=== PATIENT | male | born 1945 | race Caucasian/White ===

== ENCOUNTER 2017-12-14 18:00 | Day surgery (SDC) | payer MEDICARE ==
[~2017-12-14] VITALS: Ht 190.5 cm; Wt 180.5 kg
[~2017-12-14 18:00] MED LIST: ASPI-586 PO; ATEN100T PO; CALC500T3 PO; FUROSEMIDE; GLIP10TA13 PO; HYDR25TA4 PO; IBUP-1779 PO; METF-399 PO; PRAV20TA3 PO
--- OUTSIDE RECORDS SUMMARY | 2017-12-14 18:08 | XMS REPORT | Continuity of Care Document ---
Author Author [facility] Organization [facility] Address Unknown Phone Unavailable Allergies Active Description Code Type Severity Reaction Onset Reported/Identified Relationship to Patient Clinical Status Yes lisinopril [id number] Drug Allergy Mild N/A 02/06/2015 Medications There is no data. Problems Date Dx Coded Attending Type Code Diagnosis Diagnosed By 02/06/2015 SUSANNE SCOTT MD Ot E11.9 TYPE 2 DIABETES MELLITUS WITHOUT COMPLIC 02/06/2015 SUSANNE SCOTT MD Ot I10 ESSENTIAL (PRIMARY) HYPERTENSION 02/06/2015 SUSANNE SCOTT MD Ot I48.91 UNSPECIFIED ATRIAL FIBRILLATION 02/06/2015 SUSANNE SCOTT MD Ot Z79.82 LEARNING COORDINATOR (CURRENT) USE OF ASPIRIN 02/06/2015 SUSANNE SCOTT MD Ot Z79.899 OTHER SENIOR LIVING (CURRENT) DRUG THERAPY 05/19/2015 CHUN TINSLEY CARBONATION EQUIPMENT TENDER Ot G47.30 05/19/2015 CHUN TINSLEY CARBONATION EQUIPMENT TENDER Ot I25.10 05/19/2015 CHUN TINSLEY CARBONATION EQUIPMENT TENDER Ot I48.2 12/20/2015 CHUN TINSLEY CARBONATION EQUIPMENT TENDER Ot G47.30 SLEEP APNEA, UNSPECIFIED 12/20/2015 CHUN TINSLEY CARBONATION EQUIPMENT TENDER Ot I25.10 ATHSCL HEART DISEASE OF [place] CORONARY 12/20/2015 CHUN TINSLEY CARBONATION EQUIPMENT TENDER Ot I48.2 CHRONIC ATRIAL FIBRILLATION Procedures There is no data. Results Test Result Range Sed Rate - 12/13/17 19:23 Sed Rate 34 mm/hr 0-9 Creatine Kinase - 12/13/17 19:35 CK 34 U/L 26-174 Urinalysis - 12/13/17 20:05 Icotest N/A Negative Urine Volume Urine Volume Sufficient (10mL) Urine Yeast No Yeast present Urine-Appearance Slightly Cloudy Clear Urine-Bacteria Trace Urine-Bilirubin Negative Negative Urine-Blood Negative Negative Urine-Color Yellow Colorless-Lt. Yellow Urine-Epithelial Cells 5-10/HPF Urine-Glucose Negative Negative Urine-Ketones Trace Negative Urine-Leukocytes Negative Negative Urine-Mucus 1+ Urine-Nitrite Negative Negative Urine-Other Culture to follow Urine-pH 5.5 5-8.5 Urine-Protein 3+ Negative Urine-RBC 0-2/HPF Urine-Specific [place] >=1.030 1.000-1.030 Urine-WBC 10-15/HPF Urobilinogen 0.2 0.2-1.0 Lipase - 12/14/17 15:44 Lipase 11 U/L 7-59 EKG - 12/14/17 16:13 EKG Complete Protime - 12/14/17 16:14 INR 1.4 1.0-4.0 Protime 16.4 Sec 9.9-12.8 Encounters ACCT No. Visit Date/Time Discharge Status Pt. Type Provider Facility Loc./Unit Complaint [id number] 04/15/2015 07:09:00 04/15/2015 23:59:59 CLS Outpatient CHUN TINSLEY [facility] CARD CAD,CHRONIC A-FIB [id number] 02/06/2015 11:11:00 02/06/2015 15:05:00 DIS Emergency SONIA VALDIVIA, SUSANNE Diaz [facility] ER IRR HEART RATE [id number] 12/14/2017 15:31:00 Document Registration [id number] 12/13/2017 18:56:00 Document Registration
[2017-12-14] MEDS ORDERED: LIDOCAINE/EPI 1%-1:200,000 (XYLOCAINE) 10 ML VIAL ONE (18:12)
[2017-12-14] MEDS ORDERED: IBUP-1779 PO (18:24)
[2017-12-14] MEDS ORDERED: GLIP10TA13 PO (18:24)
[2017-12-14] MEDS ORDERED: OMEP20CA12 PO (18:24)
[2017-12-14] MEDS ORDERED: BUDE0.256 IH (18:24)
[2017-12-14] MEDS ORDERED: APIX5TAB PO (18:24)
[2017-12-14] MEDS ORDERED: ALBU90AE IH (18:24)
[2017-12-14] MEDS ORDERED: MONT10TA21 PO (18:24)
[2017-12-14] MEDS ORDERED: CHOL20002 PO (18:24)
[2017-12-14] MEDS ORDERED: HYDR25TA4 PO (18:24)
[2017-12-14] MEDS ORDERED: METF-399 PO ×2 (18:24)
[2017-12-14] MEDS ORDERED: ATOR20TA66 PO (18:24)
[2017-12-14] MEDS ORDERED: FURO-124 PO (18:24)
[2017-12-14] MEDS ORDERED: FAMOTIDINE 20MG/2ML IV (PEPCID) ONE (18:26)
[2017-12-14] MEDS ORDERED: proPOfol 200 MG/20 ML (DIPRIVAN) VIAL IV ONE (18:26)
[2017-12-14] MEDS ORDERED: LIDOCAINE PF 2% 2 ML (XYLOCAINE) VIAL ONE (18:26)
[2017-12-14] MEDS ORDERED: MIDAZOLAM 2 MG/2 ML (VERSED) VIAL ONE (18:27)
[2017-12-14] MEDS ORDERED: fentaNYL INJECTION 250 MCG/5 ML AMP ONE (18:27)
[2017-12-14] MEDS ORDERED: CATHETER FLUSH 10 ML SYR IV PRN (18:30)
[2017-12-14] MEDS ORDERED: PIPERACILLIN SODIUM/TAZOBACTAM 4.5 GM in NS (IVPB) 100 ML IV NR (18:30)
--- NOTE | 2017-12-14 18:32 | Consultation ---
History of Present Illness History of Present Illness Patient Consulted On(evon/time) 12/14/17 18:25 Time Seen by Provider: 18:01 History of Present Illness Surgery asked to consult regarding Acute Cholecystitis. HPI: pt is a 72 yo male who states he had abdominal pain that started on Tuesday and has gotten worse since that time. He was actually in the ER last night and then sent home, but returned today because "I wasn't gonna spend one more minute with that pain. " Pt has some nausea but denies vomiting. The pain at its worst was 9 out of 10, and is only better now because of the "pain med they gave me". He states he had episode like this at least once before, but he states it was actually worse (more pain). At that time they never told him that he needed his gallbladder out. Pt WBC (according to [facility] at [facility] [facility]) was 18k last night and is 21k today. Pain radiates into his right shoulder, sharp stabbing pain. Allergies and Home Medications Allergies Coded Allergies: lisinopril (Verified Allergy, Mild, 02/06/15) Home Medications Albuterol Sulfate 90 Mcg Aer.pow.ba, 1-2 PUFF IH QID PRN for SHORTNESS OF BREATH , (Reported) Apixaban 5 Mg Tablet, 5 MG PO BID, (Reported) Atenolol 100 Mg Tablet, 100 MG PO DAILY, (Reported) Atorvastatin Calcium 20 Mg Tablet, 20 MG PO DAILY, (Reported) Budesonide 0.25 Mg/2 Ml Ampul.neb, 0.25 MG IH BID, (Reported) Calcium Carbonate 500 Mg Tablet, 500 MG PO BID PRN for GI UPSET, (Reported) Furosemide 40 Mg Tablet, 40 MG PO DAILY PRN for DYSPNEA, (Reported) Glipizide 10 Mg Tablet, 20 MG PO BID, (Reported) Glipizide 10 Mg Tablet, 20 MG PO BID, (Reported) Hydrochlorothiazide 25 Mg Tablet, 25 MG PO DAILY, (Reported) Hydrochlorothiazide 25 Mg Tablet, 25 MG PO DAILY, (Reported) Ibuprofen 400 Mg Tablet, 400 MG PO Q6H PRN for PAIN, (Reported) Ibuprofen 400 Mg Tablet, 400 MG PO DAILY PRN for PAIN, (Reported) Metformin HCl 1,000 Mg Tablet, 1,000 MG PO DAILY, (Reported) Metformin HCl 1,000 Mg Tablet, 1,500 MG PO DAILY, (Reported) Metformin HCl 1,000 Mg Tablet, 1,000 MG PO DAILY, (Reported) Metformin HCl 1,000 Mg Tablet, 1,500 MG PO DAILY, (Reported) Montelukast Sodium 10 Mg Tablet, 10 MG PO DAILY, (Reported) Omeprazole 20 Mg Capsule.dr, 20 MG PO DAILY, (Reported) Pravastatin Sodium 20 Mg Tablet, 20 MG PO HS, (Reported) Patient Home Medication List Home Medication List Reviewed: Yes Past Xuphqrb-Lbxxew-Ulmwba Hx Patient Social History Alcohol Use: Denies Use Smoking Status: Former Smoker Former Smoker, Quit: Dec 14, 1993 Type Used: Cigarettes Recent Foreign Travel: No Contact w/Someone Who Travel: No Recent Infectious Disease Expo: No Surgeries Surgeries: Cardiac (stent placement), Tonsillectomy Respiratory History of Respiratory Disorde: No Cardiovascular History of Cardiac Disorders: Yes Cardiac Disorders: Atrial Fibrillation, High Cholesterol, Hypertension Neurological History of Neurological Disord: No Genitourinary History of Genitourinary Disor: No Gastrointestinal History of Gastrointestinal Di: No Musculoskeletal Musculoskeletal Disorders: Arthritis Endocrine History of Endocrine Disorders: Yes Endocrine Disorders: Diabetes, Non-Insulin dep HEENT History of HEENT Disorders: No Loss of Vision: Denies Hearing Impairment: Hard of Hearing Cancer History of Cancer: No Psychosocial History of Psychiatric Problem: No Integumentary History of Skin or Integumenta: No Blood Transfusions Adverse Reaction to a Blood Tr: No Family Medical History Significant Family History: Hypertension Review of Systems-General Constitutional: No chills, No diaphoresis; malaise EENTM: No blurred vision, No mouth pain, No mouth swelling, No epistaxis, No throat swelling Respiratory: No cough, No dyspnea on exertion, No hemoptysis Cardiovascular: No chest pain; Hx of Intervention, palpitations Gastrointestinal: RUQ, abdominal pain; No dysphagia, No hematemesis, No jaundice; nausea; No vomiting Genitourinary: No dysuria, No frequency, No hematuria Musculoskeletal: back pain, joint pain, muscle stiffness Skin: No lesions, No lumps Psychiatric/Neurological: Denies Anxiety, Denies Depressed, Denies Seizure, Denies Tingling Other pt is on Eliquis and "bruises easy", denies heat or cold intolerance Physical Exam-General Problems Physical Exam Vital Signs Capillary Refill : General Appearance: WD/WN, mild distress, obese Eyes: Bilateral Eye PERRL, Bilateral Eye EOMI HEENT: PERRL/EOMI, pharynx normal; No scleral icterus (R), No scleral icterus ( L) Neck: non-tender, full range of motion, supple, normal inspection Respiratory: chest non-tender, lungs clear, normal breath sounds, no respiratory distress, no accessory muscle use Cardiovascular: regular rate, rhythm, no edema, no murmur Gastrointestinal: normal bowel sounds, soft, no organomegaly, no pulsatile mass ; No distended, No guarding; tenderness, hernia (large incarcerated umbilical hernia) Back: no CVA tenderness, no vertebral tenderness Extremities: normal range of motion, non-tender, normal inspection, no pedal edema, no calf tenderness, normal capillary refill Neurologic/Psychiatric: investigator utility bill complaints II-XII nml as tested, no motor/sensory deficits, alert, normal mood/affect, oriented x 3 Skin: normal color, warm/dry Lymphatic: no adenopathy (neck, axilla or groin) Assessment/Plan Assessment/Plan Assessment/Plan Acute Cholecystitis/Cholelithiasis DM II A. Fib on Eliquis Pt is NPO, IV Fluids, IV ABX will give just prior to OR. He had CT read at outside institution as Acute Cholecystitis. His WBC is increasing, but he does not appear to be in any distress. He is definitely tender in RUQ. I believe pt would be most helped by Lap bret, possible cholangiogram and possible open procedure. With pain increasing and WBC getting worse I am worried about possible gangrenous gallbladder. I discussed risks and complications with pt; including but not limited to pain, bleeding, infection, scar damage to bowel, damage to duct, increased bruising and even cardiac events. All questions answered to his satisfaction. He even said "don't worry about it " when I mentioned possible [place], etc. He is at increased risk of problems because of his significant co-morbid conditions; A. fib on Eliquis, DM II and morbid obesity. DEBBY QUIROZ DO Dec 14, 2017 18:32
[2017-12-14] MEDS ORDERED: LACTATED RINGERS 1,000 ML IV PRN (18:37)
[2017-12-14] MEDS: NS IV 1000 ML 1,000 ML IV SCH ×2 (18:39→22:24)
[2017-12-14] MEDS ORDERED: FAMOTIDINE 20MG/2ML IV (PEPCID) IV ONE (18:45)
[2017-12-14] MEDS ORDERED: FLU QUADRIvalent (5+ YOA) 2018-2019 (AFLURIA) 0.5 ML IM ONE (19:00)
[2017-12-14] MEDS ORDERED: HYDROmorphone 2 MG/ML VIAL (DILAUDID) ONE (19:05)
[2017-12-14] MEDS ORDERED: ONDANSETRON 4 MG/2 ML (SDV) Z0FRAN ONE ×2 (19:06→19:47)
[2017-12-14] MEDS ORDERED: fentaNYL INJECTION 100 MCG/2 ML AMP ONE (19:06)
[2017-12-14] MEDS ORDERED: ROCURONIUM 10 MG/ML 5 ML SYRINGE IV ONE ×2 (19:45→19:46)
[2017-12-14] MEDS ORDERED: PHENYLEPHRINE 100 MCG/ML 10 ML (ANESTHESIA) SYR ONE (19:46)
[2017-12-14] MEDS ORDERED: SUCCINYLCHOLINE INJ 100 MG/5 ML SYR ONE (19:46)
[2017-12-14] MEDS ORDERED: SEVOFLURANE (ULTANE) 15 ML INHAL SOLN ONE (19:46)
--- NOTE | 2017-12-14 20:15 | Diagnostic Imaging Report ---
INDICATION: Surgery. FINDINGS: 2.6 seconds of actual fluoroscopy time were utilized during cholecystectomy. IMPRESSION: 2.6 seconds of fluoroscopy was utilized during surgical procedure. Dictated by: Dictated on workstation # [id number]
--- NOTE | 2017-12-14 20:28 | Progress Note-Post Operative ---
Post-Operative Progess Note Surgeon (s)/Commercial Real Estate Assistant (s) Surgeon DEBBY QUIROZ DO Commercial Real Estate Assistant: Claude Pre-Operative Diagnosis Acute Bret/bret, Inc UH, DM II, A fib Post-Operative Diagnosis Gangrenous GB with cholelithiasis, no obstruction Inc DM II A fib on Eliquis Procedure & Operative Findings Date of Procedure 12/14/17 Procedure Performed/Findings Lap bret with IOC Anesthesia Type GET Estimated Blood Loss Estimated blood loss (mL): scant Specimens/Packing Specimens Removed GB and contents DEBBY QUIROZ DO Dec 14, 2017 20:28
[2017-12-14] MEDS ORDERED: GLYCOPYRROLATE 0.2 MG/ML (ROBINUL) 2 ML VIAL ONE (20:34)
[2017-12-14] MEDS ORDERED: NEOSTIGMINE 1 MG/ML 5 ML SYRINGE ONE (20:34)
[2017-12-14] MEDS ORDERED: morphine INJ 4 MG/ML 1 ML (VIAL/SYRINGE) IVP PRN (20:45)
[2017-12-14] MEDS ORDERED: MEPERIDINE (DEMEROL) INJ 50 MG/ML IVP ONE (21:00)
[2017-12-14] MEDS ORDERED: ONDANSETRON 4 MG/2 ML (SDV) Z0FRAN IVP PRN (21:00)
[2017-12-14] MEDS ORDERED: fentaNYL INJECTION 100 MCG/2 ML AMP IVP ONE (21:00)
[2017-12-14] MEDS ORDERED: HYDROmorphone 2 MG/ML VIAL (DILAUDID) IV ONE (21:00)
[2017-12-14 21:45] VITALS: BP 146/67
[2017-12-14 22:23] VITALS: BP 146/67
[2017-12-14] MEDS: inSUlin ASPART (NovoLOG) 1 UNIT/0.01 ML (CHARGE PER UNIT) SC SCH (22:24)
[2017-12-14] MEDS ORDERED: RT-ALBUTEROL SULF 2.5 MG/3 ML PRE-MIX VIAL INH PRN (23:00)
[2017-12-15 00:17] VITALS: BP 136/63
[2017-12-15 04:18] VITALS: BP 130/68
--- NOTE | 2017-12-15 06:04 | OPERATIVE REPORT ---
DATE OF SERVICE: 12/14/2017 PREOPERATIVE DIAGNOSES: 1. Acute cholecystitis and cholelithiasis. 2. Incarcerated umbilical hernia. 3. Diabetes mellitus. 4. Atrial fibrillation. POSTOPERATIVE DIAGNOSES: 1. Gangrenous gallbladder with cholelithiasis without obstruction. 2. Incarcerated umbilical hernia. 3. Diabetes mellitus. 4. Atrial fibrillation. PROCEDURE: Laparoscopic cholecystectomy, intraoperative cholangiogram. SURGEON: Bran Mendiola DO LOADING SUPERVISOR: Robbie Arce DO ANESTHESIA: General endotracheal tube. SPECIMEN: Gallbladder and contents. BLOOD LOSS: Scant. FLUIDS: Per anesthesia. POSTOPERATIVE CONDITION: Stable. INDICATION FOR PROCEDURE: The patient is a 72-year-old male who had increase in abdominal pain and increasing white count and CT read as acute cholecystitis, also noted on CAT scan and physical exam to have a large incarcerated umbilical hernia. FINDINGS: The patient had a large incarcerated umbilical hernia and a gangrenous gallbladder, very fibrotic. A lot of pericholecystic fluid very tough to get off the liver. PROCEDURE NOTE: After informed consent was obtained, the patient was brought to the operating room, placed on the table in supine position, sterilely prepped and draped in normal fashion. Local lidocaine was used was used to infiltrate the skin above the umbilicus. We made an incision with #11 blade, carried down through the skin into subcutaneous tissue, then deepened down to subcutaneous tissue with Bovie electrocautery down to the fascia. Fascia was incised with Bovie electrocautery and bluntly entered the abdomen, swept a finger around, placed 0 Vicryl [id number] suture and placed an 11 mm trocar port under direct visualization. Created pneumoperitoneum, then placed 3 more ports in normal fashion using local lidocaine, 11 blade for stab incision and the VersaStep system, all done under direct visualization, one subxiphoid and two in right upper quadrant. Upon entry, noted incarcerated umbilical hernia, took a picture of this. Then, started trying to find the gallbladder and found a very large thickened distended and gangrenous gallbladder, took a picture of this. Carefully, started taking down the adhesions of gallbladder. The gallbladder was so distended, we had to make a hole to drain the bile, then able to grasp the gallbladder and taken in superior direction. Continued dissecting the adhesions off. Finally, able to start pushing them away and found the cystic duct, able to get around the cystic duct, placed 1 clip distally and then cut custodial through Metzenbaum scissors. Placed a cholangiogram catheter, shot a cholangiogram and got a good spillage of dye down into the cystic duct into the common bile duct and down into the small intestine as well as going up into common hepatic and right and left hepatics, placed 2 clips proximally on the cystic duct and cut the cystic duct with Metzenbaum scissors. Then started continued to take the adhesions down, could see the node of Calot and then right below this, what looked like a very small cystic artery, able to get the clip around this. Clipped once proximally and once distally, cut with Metzenbaum scissors and then did appear to have artery in what we had cut. Then started taking the gallbladder from bed of liver with L-hook cautery. A very fibrotic and a lot of pericholecystic fluid under here, took a longtime to finally get this off. Once it was off, placed a bag in the abdomen, placed the gallbladder into the bag and then removed this through supraumbilical incision, again very hard because he had large stones. Finally, we got the bag and gallbladder out, passed this off the table, copiously irrigated with normal saline. Hemostasis obtained in the bed of the liver with L-hook cautery. No bleeding at the end of the case, suctioned out all the fluid and at this point, then placed the patient supine, removed all ports under direct visualization, allowed pneumoperitoneum to escape and closed the supraumbilical incision, closed the fascia with 0 Vicryl suture previously placed. Copiously irrigated all incisions with normal saline, closing the 3 small 5 mm incisions with a single interrupted 4-0 undyed Monocryl subcuticular stitch. Closed the supraumbilical incision with 3 interrupted 4-0 undyed Monocryl subcuticular stitches. Area was cleaned and dried. The Dermabond placed and dressing. The patient then transferred to recovery room in stable condition. Sponge, instrument and needle counts correct at the end of the case. Dr. Arce assisted in this case helping to identify anatomy, hold anatomy out of the way, made incisions as well as closing. Job ID: [id number] DocumentID: [id number] Dictated Date: 12/14/2017 20:37:00 Director Talent Date: 12/15/2017 00:44:43 Dictated By: BRAN MENDIOLA DO
[2017-12-15] MEDS: inSUlin ASPART (NovoLOG) 1 UNIT/0.01 ML (CHARGE PER UNIT) SC SCH ×2 (06:33→11:12)
--- NOTE | 2017-12-15 07:07 | Anesthesia-General Post-Op ---
General Patient Condition Mental Status/LOC: Same as Preop Cardiovascular: Satisfactory Nausea/Vomiting: Absent Respiratory: Satisfactory Pain: Controlled Complications: Absent Post Op Complications Complications None Follow Up Care/Instructions Patient Instructions None needed. Anesthesia/Patient Condition Patient Condition Patient is doing well, no complaints, stable vital signs, no apparent adverse anesthesia problems. No complications reported per nursing. JAQUELIN THOMAS CRNA Dec 15, 2017 07:07
[2017-12-15 07:10] LABS: BASOPHILS % (AUTO) 0 % (0-10); EOSINOPHILS % (AUTO) 0 % (0-10); HEMATOCRIT 38 % (40-54); HEMOGLOBIN 12.9 G/DL (13.3-17.7); LYMPHOCYTES # (AUTO) 1.3 X 10^3 (1.0-4.0); LYMPHOCYTES % (AUTO) 8 % (12-44); MEAN CORPUSCULAR HEMOGLOBIN 31 PG (25-34); MEAN CORPUSCULAR HGB CONC 34 G/DL (32-36); MEAN CORPUSCULAR VOLUME 91 FL (80-99); MEAN PLATELET VOLUME 10.5 FL (7.4-10.4); MONOCYTES # (AUTO) 1.6 X 10^3 (0.0-1.0); MONOCYTES % (AUTO) 9 % (0-12); NEUTROPHILS # (AUTO) 14.8 X 10^3 (1.8-7.8); NEUTROPHILS % (AUTO) 83 % (42-75); PLATELET COUNT 253 10^3/uL (130-400); RED CELL DISTRIBUTION WIDTH 15.9 % (10.0-14.5); WHITE BLOOD COUNT 17.8 10^3/uL (4.3-11.0)
[2017-12-15 07:25] LABS: ANISOCYTOSIS SLIGHT; BAND NEUTROPHILS 2 %; BASOPHILS % (MANUAL) 0 %; EOSINOPHILS % (MANUAL) 0 %; LYMPHOCYTES % (MANUAL) 13 %; MONOCYTES % (MANUAL) 7 %; NEUTROPHILS % (MANUAL) 78 %
[2017-12-15 07:35] LABS: ALBUMIN 3.3 GM/DL (3.2-4.5); BILIRUBIN,TOTAL 0.6 MG/DL (0.1-1.0); CALCIUM 9.3 MG/DL (8.5-10.1); CREATININE SERUM 1.49 MG/DL (0.60-1.30); POTASSIUM 4.1 MMOL/L (3.6-5.0); TOTAL PROTEIN 6.7 GM/DL (6.4-8.2)
[2017-12-15 08:00] VITALS: BP 144/65
--- NOTE | 2017-12-15 08:01 | Consultation-Cardiology ---
HPI-Cardiology Cardiology Consultation: Date of Consultation 12/15/17 Time Seen by a Provider: 09:10 Date of Admission 12-14-17 Attending Physician Stacie Decker MD Admitting Physician No,Local Physician Consulting Physician Elicia Harkins MD HPI: Chief Complaint: Atrial fibrillation Mr. Cook is a 72 year old male in room 426. He was seen in the ER at [facility] yesterday and transferred to [facility] to undergo lap cholecystectomy by Dr. Mendiola. We have been called in consult d/t atrial fibrillation. He reports he has chronic a-fib and take Atenolol for rate control. He reports he is on Eliquis for stroke prophylaxis. He is also on low dose ASA d/t CAD. He has not had his medications in a couple days. He follows with [facility] [place], [place]. He denies any c/o CP, palpitations, syncope, near syncope, or dyspnea. He has chronic bilat LE edema which is least in the morning and worse at the end of the day. He reports he takes HCTZ for this. He reports he is having some abdominal discomfort at the puncture sites, but overall is feeling much better than prior to surgery. Review of Systems-Cardiology Review of Systems Constitutional: No chills, No fever Eyes: No vision change Ears/Nose/Throat: No epistaxis, No recent hearing loss, No throat pain Respiratory: As described under HPI Cardiovascular: As described under HPI Gastrointestinal: abdominal pain ( RLQ) Genitourinary: No dysuria, No hematuria Musculoskeletal: no symptoms reported Skin: No ulcerations Psychiatric/Neurological: No anxiety, No depression, No seizure, No focal weakness, No syncope Hematologic: No bleeding abnormalities HYE-Okwwbq-Bnyseu Hx Patient Social History Alcohol Use: Denies Use Recreational Drug Use: No Smoking Status: Former Smoker Type Used: Cigarettes Recent Foreign Travel: No Recent Infectious Disease Expo: No Hospitalization with Isolation: Denies Physical Abuse Screen: No Sexual Abuse: No Past Medical History PMH As described under Assessment. Family Medical History Family Medical History: He does not report any family h/o CAD or SCD Family History: Patient reports no known family medical history. Allergies and Home Medications Allergies Coded Allergies: lisinopril (Verified Allergy, Mild, 02/06/15) Home Medications Albuterol Sulfate 90 Mcg Aer.pow.ba, 1-2 PUFF IH QID PRN for SHORTNESS OF BREATH , (Reported) Apixaban 5 Mg Tablet, 5 MG PO BID, (Reported) Atenolol 100 Mg Tablet, 100 MG PO DAILY, (Reported) Atorvastatin Calcium 20 Mg Tablet, 20 MG PO DAILY, (Reported) Budesonide 0.25 Mg/2 Ml Ampul.neb, 0.25 MG IH BID, (Reported) Calcium Carbonate 500 Mg Tablet, 500 MG PO BID PRN for GI UPSET, (Reported) Furosemide 40 Mg Tablet, 40 MG PO DAILY PRN for DYSPNEA, (Reported) Glipizide 10 Mg Tablet, 20 MG PO BID, (Reported) Hydrochlorothiazide 25 Mg Tablet, 25 MG PO DAILY, (Reported) Hydrocodone/Acetaminophen 1 Each Tablet, 1 EACH PO Q4-6HR PRN for PAIN-MODERATE Prescribed by: STACIE DECKER on 12/15/17 1121 Ibuprofen 400 Mg Tablet, 400 MG PO Q6H PRN for PAIN, (Reported) Ibuprofen 400 Mg Tablet, 400 MG PO DAILY PRN for PAIN, (Reported) Metformin HCl 1,000 Mg Tablet, 1,500 MG PO DAILY, (Reported) Montelukast Sodium 10 Mg Tablet, 10 MG PO DAILY, (Reported) Omeprazole 20 Mg Capsule.dr, 20 MG PO DAILY, (Reported) Patient Home Medication List Home Medication List Reviewed: Yes Physical Exam-Cardiology Physical Exam Vital Signs/I&O Capillary Refill : Constitutional: AAO x 3, well-developed, well-nourished HEENT: PERRL, hearing is well preserved, oral hygience is good Neck: No carotid bruit; carotid pulses are 2 + bilaterally Respiratory: No accessory muscle use, No respiratory distress; lungs clear to auscultation Cardiovascular: irregularly irregular; No JVD Gastrointestinal: No tender; round, audible bowel sounds (hypoactive) Rectal: deferred Extremities: significant edema (bilat mild to mod LE edema) Neurologic/Psychiatric: grossly intact, power is 5/5 both on sides Skin: No rash, No ulcerations Data Review Labs Microbiology 12/14/17 MRSA Screen - Final, Complete MRSA not isolated ECG Impression ECG Initial ECG Impression: Atrial Fibrillation A/P-Cardiology Assessment/Admission Diagnosis S/P lap bret on 12-14-[address] Mendiola Chronic atrial fibrillation first seen on an ECG in early Jan 2015 at his primary physician's Eliquis for stroke prophylaxis MPI of April 15, 2015 showed no evidence of any significant myocardial ischemia or infarction. No distinct wall motion abnormality. LVEF 50% CAD. Has a h/o cor stenting by Dr Rogers on 07/03/00. This, according the card that he carries, was to RCA and was [address] (size illegible) Obesity with BMI approx 50 Hypertension Hyperlipidemia - followed by the [facility] DM II Chronic dependent leg edema LALA - on c-pap therapy Echocardiogram from February 11, 2015 at the [facility] in [place], [place] by Dr. Funes showed LVEF 60-65%. The LA is moderately dilated. Mild MR. Trace TR. No pulmonary HTN. Discussion and Recomendations Chronic atrial fib Restart home dose of Atenolol for rate and BP control Restart OAC with Eliquis if OK with surgical services Continue ASA 81 mg if OK with surgical services d/t known h/o CAD Continue home dose statin He follows as an out pt with the [facility] in [place], [place] Clinical Quality Measures DVT/VTE Risk/Contraindication: Risk Factor Score Per Nursin RFS Level Per Nursing on Admit: 4+=Very High CHUN TINSLEY Dec 15, 2017 08:01
[2017-12-15] MEDS ORDERED: APIXABAN 5 MG (ELIQUIS) TABLET PO NR (09:52)
[2017-12-15] MEDS ORDERED: ASPIRIN E.C. 81 MG (ECOTRIN) TAB PO NR (09:54)
[2017-12-15] MEDS ORDERED: HYDROCHLOROTHIAZIDE 25 MG (HCTZ) TAB PO NR (09:55)
[2017-12-15] MEDS ORDERED: ATENOLOL 50 MG (TENORMIN) TAB PO NR (09:55)
--- NOTE | 2017-12-15 10:29 | Discharge Inst-Simple/Standard ---
Discharge Inst-Standard Discharge Medications New, Converted or Re-Newed RX: Transmitted to Pharmacy Patient Instructions/Follow Up Plan of Care/Instructions/FU: Please continue to take your medications as written. Please follow up with your PCP in the next week and with Dr Mendiola as scheduled. Activity as Tolerated: Yes Discharge Diet: Low Fat/Low Cholesterol, Cardiac Diet Return to The Hospital For: Fever, worsening abdominal pain, if you feel you are getting worse. Planned Outpatient Orders/Ref. Pneu Vac Indicated: Yes STACIE ALCARAZ MD Dec 15, 2017 10:29 am
--- NOTE | 2017-12-15 10:34 | Short Stay Summary-Hospitalist ---
History of Present Illness HPI/Chief Complaint Pt is a 72yoCM with a PMH of DM, HTN, CAD, and atrial fibrillation who was direct admitted from outside hospital for acute cholecystitis. He states he developed abdominal pain two days ago and he was seen in the ER at [facility] and discharged home as his CT was read as cholelithiasis only. He returned the next day due to persistent RUQ pain and nausea. Review of the outside CT from the day prior revealed that he had acute cholecystitis with cholelithiasis. He was referred here for surgery. Today he reports that he is doing well and he has already tolerated his breakfast. He no longer has any nausea and he denies any fevers or chills. Source: patient Exam Limitations: no limitations Date Seen 12/15/17 Time Seen by a Provider: 10:33 Attending Physician Stacie Decker MD PCP No,Local Physician Referring Physician Date of Admission Dec 14, 2017 at 6:00 pm Home Medications & Allergies Home Medications Reviewed patient Home Medication Reconciliation performed by pharmacy medication reconciliations machine operator slitter technician and/or nursing. Patients Allergies have been reviewed. Allergies Allergies Coded Allergies lisinopril (Verified Allergy, Mild, 02/06/15) Past Wsfpqjv-Hvezae-Apfjbr Hx Past Med/Social Hx: Reviewed Nursing Past Med/Soc Hx Patient Social History Alcohol Use: Denies Use Recreational Drug Use: No Smoking Status: Former Smoker Former Smoker, Quit: Dec 14, 1993 Type Used: Cigarettes Physical Abuse Screen: No Sexual Abuse: No Recent Foreign Travel: No Contact w/other who traveled: No Recent Hopitalizations: No Recent Infectious Disease Expo: No Seasonal Allergies Seasonal Allergies: No Past Medical History Surgeries: Cardiac (stent placement), Coronary Stent, Tonsillectomy Cardiac: Atrial Fibrillation, Coronary Artery Disease, High Cholesterol, Hypertension Musculoskeletal: Arthritis Endocrine: Diabetes, Non-Insulin dep Loss of Vision: Denies Hearing Impairment: Hard of Hearing History of Blood Disorders: No Adverse Reaction to Blood [place]: No Family History Reviewed Nursing Family Hx Patient reports no known family medical history. No Pertinent Family Hx, Hypertension Review of Systems Constitutional: No chills, No diaphoresis, No fever EENTM: no symptoms reported Respiratory: No cough, No dyspnea on exertion, No short of breath Cardiovascular: No chest pain, No palpitations Gastrointestinal: abdominal pain; No constipation, No diarrhea; nausea; No vomiting Genitourinary: no symptoms reported Musculoskeletal: no symptoms reported Skin: no symptoms reported Psychiatric/Neurological: No Symptoms Reported Physical Exam Physical Exam Vital Signs Vital Signs - First Documented 12/14/17 12/14/17 12/14/17 18:42 20:00 21:45 Temp 97.3 Pulse 66 Resp 20 B/P (MAP) 146/67 (93) Pulse Ox 96 O2 Delivery Room Air O2 Flow Rate 3.00 Capillary Refill : Height, Weight, BMI Height: 6'3.00" Weight: 398lbs. 0.0oz. 180.950992mi; 49.8 BMI Method: General Appearance: No Apparent Distress, Obese HEENT: Moist Mucous Membranes; No Scleral Icterus (L), No Scleral Icterus (R) Respiratory: Lungs Clear, No Respiratory Distress Cardiovascular: Regular Rate, Rhythm, No Murmur Gastrointestinal: Normal Bowel Sounds, Non Tender, Soft; No Distended, No Guarding Extremity: No Calf Tenderness, No Pedal Edema Neurologic/Psychiatric: Alert, Oriented x3 Skin: Other (venous stasis dermatitis on lower extremities) Results Results/Procedures Labs Laboratory Tests 12/15/17 06:42 Patient resulted labs reviewed. Short Stay Diagnosis Discharge Diagnosis-Short Stay Admission Diagnosis Acute Cholecystitis Final Discharge Diagnosis Acute Cholecystitis Conclusion Plan Acute Cholecystitis POD #1 Surgery consulted, appreciate recs Pain controlled-will DC home on hydrocodone DM On SSI while here, BS WNL Resume home meds A-fib rate controlled, Cardiology consulted Hold Eliquis tonight and resume tomorrow Clinical Quality Measures DVT/VTE Risk/Contraindication: Risk Factor Score Per Nursin RFS Level Per Nursing on Admit: 4+=Very High STACIE DECKER MD Dec 15, 2017 10:33
--- NOTE | 2017-12-15 10:54 | Consultation-Cardiology ---
HPI-Cardiology Cardiology Consultation: Date of Consultation 12/15/17 Time Seen by a Provider: 09:30 Date of Admission Attending Physician Darby Decker MD Admitting Physician No,Local Physician Consulting Physician MICHELLE DIANA MD, MA, FACP, FAC, [facility] Physician requesting consult: Dr Decker HPI: Chief Complaint: Reason for consulation: Chronic atrial fibrillation and h/o CAD Mr. Cook is a 72 year old male in room 426. He was seen in the ER at [facility] yesterday and transferred to [facility] to undergo lap cholecystectomy by Dr. Mendiola. We have been called in consult d/t atrial fibrillation. He reports he has chronic a-fib and take Atenolol for rate control. He reports he is on Eliquis for stroke prophylaxis. He is also on low dose ASA d/t CAD. He has not had his medications in a couple days. He follows with [facility] at [facility] [place], [place]. He denies any c/o CP, palpitations, syncope, near syncope, or dyspnea. He has chronic bilat LE edema which is least in the morning and worse at the end of the day. He reports he takes HCTZ for this. He reports he is having some abdominal discomfort at the puncture sites, but overall is feeling much better than prior to surgery. Review of Systems-Cardiology Review of Systems Constitutional: No chills, No fever Eyes: No vision change Ears/Nose/Throat: No epistaxis, No recent hearing loss, No throat pain Respiratory: As described under HPI Cardiovascular: As described under HPI Gastrointestinal: abdominal pain ( RLQ) Genitourinary: No dysuria, No hematuria Musculoskeletal: no symptoms reported Skin: No ulcerations Psychiatric/Neurological: No anxiety, No depression, No seizure, No focal weakness, No syncope Hematologic: No bleeding abnormalities HFE-Deongj-Qkoonr Hx Patient Social History Alcohol Use: Denies Use Recreational Drug Use: No Smoking Status: Former Smoker Type Used: Cigarettes Recent Foreign Travel: No Recent Infectious Disease Expo: No Hospitalization with Isolation: Denies Physical Abuse Screen: No Sexual Abuse: No Past Medical History PMH As described under Assessment. Family Medical History Family Medical History: He does not report any family h/o CAD or SCD Family History: Patient reports no known family medical history. Allergies and Home Medications Allergies Coded Allergies: lisinopril (Verified Allergy, Mild, 02/06/15) Home Medications Albuterol Sulfate 90 Mcg Aer.pow.ba, 1-2 PUFF IH QID PRN for SHORTNESS OF BREATH , (Reported) Apixaban 5 Mg Tablet, 5 MG PO BID, (Reported) Atenolol 100 Mg Tablet, 100 MG PO DAILY, (Reported) Atorvastatin Calcium 20 Mg Tablet, 20 MG PO DAILY, (Reported) Budesonide 0.25 Mg/2 Ml Ampul.neb, 0.25 MG IH BID, (Reported) Calcium Carbonate 500 Mg Tablet, 500 MG PO BID PRN for GI UPSET, (Reported) Furosemide 40 Mg Tablet, 40 MG PO DAILY PRN for DYSPNEA, (Reported) Glipizide 10 Mg Tablet, 20 MG PO BID, (Reported) Glipizide 10 Mg Tablet, 20 MG PO BID, (Reported) Hydrochlorothiazide 25 Mg Tablet, 25 MG PO DAILY, (Reported) Hydrochlorothiazide 25 Mg Tablet, 25 MG PO DAILY, (Reported) Ibuprofen 400 Mg Tablet, 400 MG PO Q6H PRN for PAIN, (Reported) Ibuprofen 400 Mg Tablet, 400 MG PO DAILY PRN for PAIN, (Reported) Metformin HCl 1,000 Mg Tablet, 1,000 MG PO DAILY, (Reported) Metformin HCl 1,000 Mg Tablet, 1,500 MG PO DAILY, (Reported) Metformin HCl 1,000 Mg Tablet, 1,000 MG PO DAILY, (Reported) Metformin HCl 1,000 Mg Tablet, 1,500 MG PO DAILY, (Reported) Montelukast Sodium 10 Mg Tablet, 10 MG PO DAILY, (Reported) Omeprazole 20 Mg Capsule.dr, 20 MG PO DAILY, (Reported) Pravastatin Sodium 20 Mg Tablet, 20 MG PO HS, (Reported) Patient Home Medication List Home Medication List Reviewed: Yes Physical Exam-Cardiology Physical Exam Vital Signs/I&O 12/14/17 12/15/17 12/15/17 12/15/17 23:11 00:17 01:00 04:18 Temp 97.6 97.9 Pulse 86 72 81 Resp 18 17 B/P (MAP) 136/63 (87) 130/68 (88) Pulse Ox 97 97 O2 Delivery Nasal Cannula Nasal Cannula Nasal Cannula O2 Flow Rate 3.00 3.00 3.00 12/15/17 12/15/17 07:00 08:00 Temp 98.8 Pulse 76 101 Resp 24 B/P (MAP) 144/65 (91) Pulse Ox 95 O2 Delivery Nasal Cannula O2 Flow Rate 3.00 12/15/17 00:00 Intake Total 1100 ml Output Total 0 ml Balance 1100 ml Capillary Refill : Constitutional: AAO x 3, well-developed, well-nourished HEENT: PERRL, hearing is well preserved, oral hygience is good Neck: No carotid bruit; carotid pulses are 2 + bilaterally Respiratory: No accessory muscle use, No respiratory distress; lungs clear to auscultation Cardiovascular: irregularly irregular; No JVD Gastrointestinal: No tender; round, audible bowel sounds (hypoactive) Rectal: deferred Extremities: significant edema (bilat mild to mod LE edema) Neurologic/Psychiatric: grossly intact, power is 5/5 both on sides Skin: No rash, No ulcerations Data Review Labs Laboratory Tests 12/14/17 21:02: Glucometer 181H 12/14/17 22:12: Glucometer 215H 12/15/17 05:06: Glucometer 157H 12/15/17 06:42: White Blood Count 17.8H, Red Blood Count 4.20L, Hemoglobin 12.9L, Hematocrit 38L , Mean Corpuscular Volume 91, Mean Corpuscular Hemoglobin 31, Mean Corpuscular Hemoglobin Concent 34, Red Cell Distribution Width 15.9H, Platelet Count 253, Mean Platelet Volume 10.5H, Neutrophils (%) (Auto) 83H, Lymphocytes (%) (Auto) 8L, Monocytes (%) (Auto) 9, Eosinophils (%) (Auto) 0, Basophils (%) (Auto) 0, Neutrophils # (Auto) 14.8H, Lymphocytes # (Auto) 1.3, Monocytes # (Auto) 1.6H, Eosinophils # (Auto) 0.0, Basophils # (Auto) 0.0, Neutrophils % (Manual) 78, Lymphocytes % (Manual) 13, Monocytes % (Manual) 7, Eosinophils % (Manual) 0, Basophils % (Manual) 0, Band Neutrophils 2, Anisocytosis SLIGHT, Sodium Level 138, Potassium Level 4.1, Chloride Level 102, Carbon Dioxide Level 27, Anion Gap 9, Blood Urea Nitrogen 13, Creatinine 1.49H, Estimat Glomerular Filtration Rate 46, BUN/Creatinine Ratio 9, Glucose Level 160H, Calcium Level 9.3, Corrected Calcium 9.9, Total Bilirubin 0.6, Aspartate Amino Transf (AST/SGOT) 29 , Alanine Aminotransferase (ALT/SGPT) 27, Alkaline Phosphatase 31L, Total Protein 6.7, Albumin 3.3 Laboratory Tests 12/15/17 06:42 A/P-Cardiology Assessment/Admission Diagnosis Ac cholecystitis leading to lap bret on 12-14-[address] Mendiola Chronic atrial fibrillation first seen on an ECG in early Jan 2015 at his primary physician's Chronic use of Eliquis for stroke prophylaxis MPI of April 15, 2015 showed no evidence of any significant myocardial ischemia or infarction. No distinct wall motion abnormality. LVEF 50% CAD. Has a h/o cor stenting by Dr Rogers on 07/03/00. This, according the card that he carries, was to RCA and was [address] (size illegible) Obesity with BMI approx 50 Hypertension Hyperlipidemia - followed by the [facility] DM II Chronic dependent leg edema LALA - treated with CPAP Echocardiogram from February 11, 2015 at the [facility] in [place], [place] by Dr. Funes showed LVEF 60-65%. The LA is moderately dilated. Mild MR. Trace TR. No pulmonary HTN. Discussion and Recomendations * Has multiple CV comorbidities that are outlined above * We recommend restarting home dose of Atenolol for rate and BP control * We recommend restarting OAC with Eliquis, if OK with the Surgical Svce * Continue ASA 81 mg if OK with the Surgical Svce d/t known h/o CAD * Continue home dose statin * We have recommend outpatient cardiac f/u. He states he follows as an out pt with the [facility] in [place], [place] * We answered his CV-related questions Clinical Quality Measures DVT/VTE Risk/Contraindication: Risk Factor Score Per Nursin RFS Level Per Nursing on Admit: 4+=Very High MICHELLE DIANA MD FACP FAC [facility] Dec 15, 2017 10:54
--- NOTE | 2017-12-15 11:16 | Discharge Inst-Surgical ---
Discharge Inst-Surgical Depart Medication/Instructions New, Converted or Re-Newed RX: RX Given to Pt/Family Patient Instructions Follow up Appt: Make appointment for 1 weeks; [phone]. Instructions: No lifting greater than 10 pounds. No strenuous activity. May shower in 24 hours, no tub bath or soaking. Use incentive spirometer at home as directed. No Smoking Skin/Wound Care: May remove bandages tonight. You need to leave the Dermabond on over incision it will fall off on its own. Symptoms to Report: Appetite Changes, Extremity Discoloration, Numbness/Tingling, Swelling Increased , Bleeding Excessive, Eyesight Changes, Pain Increased, Urine Color Change, Constipation(Persistent), Fever over 101 degree F, Pain/Pressure in chest, Urinating Difficulty, Cough Up/Vomit Blood, Heart Beat Irreg/Pounding, Pain/ Pressure in jaw, Cramps in feet or legs, Lightheadedness, Pain/Pressure in shoulder, Diarrhea(Persistent), Memory Changes Suddenly, Questions/Concerns, Weight gain consecutive days, Dizziness/Fainting, Nausea/Vomiting, Shortness of Breath, Weight gain over 2 pounds. If eyes or skin turn yellow notify physician. If questions or concerns contact your physician Or seek help at emergency department. Activity Activity Instructions: Avoid Stress to Incision Driving Instructions: No Driving/Refer to Diet Discharge Diet: Avoid Fatty Foods, Low Fat/Low Cholesterol Diet After 24 Hours: Clear Liquid if Nauseous If Any Problems/Questions/Issu: Contact Your Physician, Go to Emergency Room Skin/Wound Care Infection Signs and Symptoms: Increased Redness, Foul Odor of Wound, Increased Drainage, Skin Itchy or Has a Rash, Increased Swelling, Temperature Above 101 F Bathing Instructions: Shower Stitches/Kevin/Dermabond Dis: Dermabond Ice Pack: Ice On and Off Site (as needed for pain) DEBBY QUIROZ DO Dec 15, 2017 11:16
[2017-12-15] MEDS ORDERED: HYDR-3812 PO (11:21)
--- NOTE | 2017-12-15 11:37 | Progress Note ---
Subjective Date Seen by a Provider: Dec 15, 2017 Time Seen by a Provider: 10:13 Subjective/Events-last exam Pt was ambulating to the bathroom upon my arrival. He says he thinks he feels well enough to go home. Denies any complaints. Dr. Mendiola I was with Mu and we saw pt together. Review of Systems General: No Chills, No Fatigue, No Malaise HEENT: No Head Aches, No Visual Changes, No Eye Pain, No Dysphasia Pulmonary: No Dyspnea, No Cough Cardiovascular: No: Chest Pain, Orthopnea, Lt Headedness Gastrointestinal: Abdominal Pain; No: Nausea, Vomiting, Diarrhea, Constipation Genitourinary: No Dysuria, No Frequency Musculoskeletal: No: hand pain, foot pain Neurological: No: Weakness, Numbness, Incoordination, Change in speech, Confusion, Seizures Denies any abnormal bruising or bleeding Objective Exam Vital Signs Date Time Temp Pulse Resp B/P (MAP) Pulse Ox O2 Delivery O2 Flow Rate FiO2 12/15/17 08:00 98.8 101 24 144/65 (91) 95 Nasal Cannula 3.00 12/15/17 07:00 76 12/15/17 04:18 97.9 81 17 130/68 (88) 97 Nasal Cannula 3.00 12/15/17 01:00 72 12/15/17 00:17 97.6 86 18 136/63 (87) 97 Nasal Cannula 3.00 12/14/17 23:11 Nasal Cannula 3.00 12/14/17 22:26 67 12/14/17 22:23 18 96 12/14/17 22:23 96 Nasal Cannula 3.00 12/14/17 21:45 97.3 66 20 146/67 (93) 97 Nasal Cannula 3.00 12/14/17 20:00 Nasal Cannula 3.00 12/14/17 18:42 96 Room Air I & O 12/15/17 07:00 Intake Total 1300 ml Output Total 250 ml Balance 1050 ml Capillary Refill : General Appearance: No Apparent Distress, WD/WN; No Anxious HEENT: PERRL/EOMI, Moist Mucous Membranes; No Scleral Icterus (L), No Scleral Icterus (R) Neck: Full Range of Motion, Normal Inspection, Non Tender, Supple Respiratory: Chest Non Tender, Lungs Clear, Normal Breath Sounds, No Accessory Muscle Use Cardiovascular: No Murmur, Normal Peripheral Pulses, Irregularly Irregular ( Afib) Gastrointestinal: normal bowel sounds, soft, no organomegaly, no pulsatile mass ; No distended, No guarding; tenderness (mild TTP around incision sites), hernia (large incarcerated umbilical hernia) Neurologic/Psychiatric: Alert, Oriented x3, No Motor/Sensory Deficits, Normal Mood/Affect, humane agent II-XII Norm as Tested Skin: Normal Color, Warm/Dry (Sterile dressings over incisions. No surrounding erythema or warmth. No drainage.) Lymphatic: No Adenopathy Results Lab Laboratory Tests 12/14/17 21:02: Glucometer 181H 12/14/17 22:12: Glucometer 215H 12/15/17 05:06: Glucometer 157H 12/15/17 06:42: White Blood Count 17.8H, Red Blood Count 4.20L, Hemoglobin 12.9L, Hematocrit 38L , Mean Corpuscular Volume 91, Mean Corpuscular Hemoglobin 31, Mean Corpuscular Hemoglobin Concent 34, Red Cell Distribution Width 15.9H, Platelet Count 253, Mean Platelet Volume 10.5H, Neutrophils (%) (Auto) 83H, Lymphocytes (%) (Auto) 8L, Monocytes (%) (Auto) 9, Eosinophils (%) (Auto) 0, Basophils (%) (Auto) 0, Neutrophils # (Auto) 14.8H, Lymphocytes # (Auto) 1.3, Monocytes # (Auto) 1.6H, Eosinophils # (Auto) 0.0, Basophils # (Auto) 0.0, Neutrophils % (Manual) 78, Lymphocytes % (Manual) 13, Monocytes % (Manual) 7, Eosinophils % (Manual) 0, Basophils % (Manual) 0, Band Neutrophils 2, Anisocytosis SLIGHT, Sodium Level 138, Potassium Level 4.1, Chloride Level 102, Carbon Dioxide Level 27, Anion Gap 9, Blood Urea Nitrogen 13, Creatinine 1.49H, Estimat Glomerular Filtration Rate 46, BUN/Creatinine Ratio 9, Glucose Level 160H, Calcium Level 9.3, Corrected Calcium 9.9, Total Bilirubin 0.6, Aspartate Amino Transf (AST/SGOT) 29 , Alanine Aminotransferase (ALT/SGPT) 27, Alkaline Phosphatase 31L, Total Protein 6.7, Albumin 3.3 Assessment/Plan Assessment/Plan Assessment/Plan POD#1 Student A/P: Pt is well appearing this morning and denies complaints. He can restart his Eliquis tomorrow. He is ready for D/C home and is scheduled to follow up in Dr. Mendiola's office next week. I agree with above and told pt to see me in a week. I also informed him that Dr. Decker would be writing his pain meds. He had no questions. Clinical Quality Measures DVT/VTE Risk/Contraindication: Risk Factor Score Per Nursin RFS Level Per Nursing on Admit: 4+=Very High [employer] ST[employer] Dec 15, 2017 11:37 DEBBY MENDIOLA DO Dec 15, 2017 11:49
[2017-12-15] MEDS ORDERED: APIXABAN 5 MG (ELIQUIS) TABLET PO SCH (21:00)
[2017-12-15] MEDS ORDERED: ATORVASTATIN 40 MG (LIPITOR) TABLET PO SCH (21:00)
[2017-12-16] MEDS ORDERED: ASPIRIN E.C. 81 MG (ECOTRIN) TAB PO SCH (09:00)
[2017-12-16] MEDS ORDERED: HYDROCHLOROTHIAZIDE 25 MG (HCTZ) TAB PO SCH (09:00)
[2017-12-16] MEDS ORDERED: ATENOLOL 50 MG (TENORMIN) TAB PO SCH (09:00)
--- OUTSIDE RECORDS SUMMARY | 2017-12-16 11:32 | XMS REPORT | Continuity of Care Document ---
Author Author [facility] Organization [facility] Address Unknown Phone Unavailable Allergies Active Description Code Type Severity Reaction Onset Reported/Identified Relationship to Patient Clinical Status Yes NO KNOWN DRUG ALLERGIES UNKNOWN NO KNOWN DRUG ALLERG Yes lisinopril [id number] Drug Allergy Mild N/A 02/06/2015 Medications Medication Packaging Start Date Stop Date Route Dosage Sig FENTANYL INJ 100 MCG/2CC VIAL MCG 12/14/2017 12/14/2017 [id number]&1618 Piperacillin-tazobactam 3.375 Gm IV recon soln (Zosyn) GM 12/14/2017 12/14/2017 ONCE&1651 NORMAL SALINE 50CC IV BAG INJ (NS 50CC MINI-BAG) ml 12/14/2017 12/24/2017 Q8H&0600,1400,2200 METRONIDAZOLE IV PREMIX BAG INJ 500 MG/100CC (FLAGYL IV 100CC BAG) MG 12/14/2017 12/24/2017 Q8H&0600,1400,2200 Problems Date Dx Coded Attending Type Code Diagnosis Diagnosed By 02/06/2015 SUSANNE SCOTT MD Ot E11.9 TYPE 2 DIABETES MELLITUS WITHOUT COMPLIC 02/06/2015 SUSANNE SCOTT MD Ot I10 ESSENTIAL (PRIMARY) HYPERTENSION 02/06/2015 SUSANNE SCOTT MD Ot I48.91 UNSPECIFIED ATRIAL FIBRILLATION 02/06/2015 SUSANNE SCOTT MD Ot Z79.82 PROFESSIONAL ORGANIZER (CURRENT) USE OF ASPIRIN 02/06/2015 SUSANNE SCOTT MD Ot Z79.899 OTHER PROFESSIONAL ORGANIZER (CURRENT) DRUG THERAPY 05/19/2015 CHUN TINSLEY Ot G47.30 05/19/2015 CHUN TINSLEYP Ot I25.10 05/19/2015 CHUN TINSLEYP Ot I48.2 12/20/2015 CHUN TINSLEYP Ot G47.30 SLEEP APNEA, UNSPECIFIED 12/20/2015 CHUN TINSLEY Ot I25.10 ATHSCL HEART DISEASE OF [place] CORONARY 12/20/2015 CHUN TINSLEY Ot I48.2 CHRONIC ATRIAL FIBRILLATION 12/13/2017 ManjeetRamakrishna vogel W 574.10 CALCULUS OF GALLBLADDER WITH OTHER CHOLECYSTITIS, WITHOUT MENTION OF OBSTRUCTION 12/13/2017 Ramakrishna Jimenez A 789.03 ABDOMINAL PAIN, RIGHT LOWER QUADRANT 12/13/2017 Ramakrishna Jimenez W K80.20 CALCULUS OF GALLBLADDER W/O CHOLECYSTITIS W/O OBSTRUCTION 12/13/2017 Ramakrishna Jimenez A R10.31 RIGHT LOWER QUADRANT PAIN 12/15/2017 STACIE ALCARAZ MD Ot E11.9 TYPE 2 DIABETES MELLITUS WITHOUT COMPLIC 12/15/2017 STACIE ALCARAZ MD, Ot E66.01 MORBID (SEVERE) OBESITY DUE TO EXCESS CA 12/15/2017 STACIE ALCARAZ MD, Ot E78.00 PURE HYPERCHOLESTEROLEMIA, UNSPECIFIED 12/15/2017 STACIE ALCARAZ MD, Ot G47.33 OBSTRUCTIVE SLEEP APNEA (ADULT) (PEDIATR 12/15/2017 STACIE ALCARAZ MD, Ot H91.90 UNSPECIFIED HEARING LOSS, UNSPECIFIED EA 12/15/2017 STACIE ALCARAZ MD, Ot I08.1 RHEUMATIC DISORDERS OF BOTH MITRAL AND T 12/15/2017 STACIE ALCARAZ MD Ot I10 ESSENTIAL (PRIMARY) HYPERTENSION 12/15/2017 STACIE ALCARAZ MD, Ot I25.10 ATHSCL HEART DISEASE OF [place] CORONARY 12/15/2017 STACIE ALCARAZ MD Ot I48.2 CHRONIC ATRIAL FIBRILLATION 12/15/2017 STACIE ALCARAZ MD Ot K42.0 UMBILICAL HERNIA WITH OBSTRUCTION, WITHO 12/15/2017 STACIE ALCARAZ MD, Ot K80.00 CALCULUS OF GALLBLADDER W ACUTE CHOLECYS 12/15/2017 STACIE ALCARAZ MD, Ot M19.91 PRIMARY OSTEOARTHRITIS, UNSPECIFIED SITE 12/15/2017 STACIE ALCARAZ MD, Ot R60.0 LOCALIZED EDEMA 12/15/2017 STACIE ALCARAZ MD Ot Z68.42 BODY MASS INDEX (BMI) 45.0-49.9, ADULT 12/15/2017 STACIE ALCARAZ MD, Ot Z79.01 PROFESSIONAL ORGANIZER (CURRENT) USE OF ANTICOAGULANT 12/15/2017 STACIE ALCARAZ MD Ot Z79.84 PROFESSIONAL ORGANIZER (CURRENT) USE OF ORAL HYPOGLYC 12/15/2017 STACIE ALCARAZ MD Ot Z87.891 PERSONAL HISTORY OF NICOTINE DEPENDENCE 12/15/2017 STACIE ALCARAZ MD Ot Z95.5 PRESENCE OF CORONARY ANGIOPLASTY IMPLANT Procedures Code Description Performed By Performed On [id number] RESECTION OF GALLBLADDER, PERCUTANEOUS E 12/14/2017 [id number] FLUOROSCOPY OF BILE DUCTS USING LOW OSMO 12/14/2017 Results Test Result Range Sed Rate - 12/13/17 19:23 Sed Rate 34 mm/hr 0-9 Blood Culture - 12/13/17 19:23 PRELIM CULTURE RESULTS Blood Culture Negative, No Growth Day 1 MEDIA PLATED Blood Culture Media Position [id number] Culture Media Position [id number] really is in C45 not A12 CULTURE SOURCE LAC Creatine Kinase - 12/13/17 19:35 CK 34 [...] 5-8.5 Urine-Protein 3+ Negative Urine-RBC 0-2/HPF Urine-Specific [place] >=1.030 1.000-1.030 Urine-WBC 10-15/HPF Urobilinogen 0.2 0.2-1.0 Urine Culture - 12/13/17 20:16 PRELIM CULTURE RESULTS <10,000 Gram Positive Mixed Kerline [id number] Skin Contaminant MEDIA PLATED Setup at 20:21 on 12/13/2017 CULTURE SOURCE void Lipase - 12/14/17 15:44 Lipase 11 U/L 7-59 Blood Culture - 12/14/17 16:01 PRELIM CULTURE RESULTS Blood Culture Negative, No Growth Day 1 MEDIA PLATED Blood Culture Media Position a12 CULTURE SOURCE IV start EKG - 09/19/18 16:13 EKG Complete Protime - 12/14/17 16:14 INR 1.4 1.0-4.0 Protime 16.4 Sec 9.9-12.8 Methicillin resistant Staphylococcus aureus (MRSA) screening culture - 18:10 Methicillin resistant Staphylococcus aureus (MRSA) screening culture NEG NRG Capillary blood glucose measurement by glucometer (mass/volume) - 12/14/17 21: 02 Capillary blood glucose measurement by glucometer (mass/volume) 181 mg/dL 70-110 Capillary blood glucose measurement by glucometer (mass/volume) - 12/14/17 22: 12 Capillary blood glucose measurement by glucometer (mass/volume) 215 mg/dL 70-110 Capillary blood glucose measurement by glucometer (mass/volume) - 12/15/17 05: 06 Capillary blood glucose measurement by glucometer (mass/volume) 157 mg/dL 70-110 Complete blood count (CBC) with automated white blood cell (WBC) differential - 12/15/17 06:42 Blood leukocytes automated count (number/volume) 17.8 10*3/uL 4.3-11.0 Blood erythrocytes automated count (number/volume) 4.20 10*6/uL 4.35-5.85 Venous blood hemoglobin measurement (mass/volume) 12.9 g/dL 13.3-17.7 Blood hematocrit (volume fraction) 38 % 40-54 Automated erythrocyte mean corpuscular volume 91 [foz_us] 80-99 Automated erythrocyte mean corpuscular hemoglobin (mass per erythrocyte) 31 pg 25-34 Automated erythrocyte mean corpuscular hemoglobin concentration measurement ( mass/volume) 34 g/dL 32-36 Automated erythrocyte distribution width ratio 15.9 % 10.0-14.5 Automated blood platelet count (count/volume) 253 10*3/uL 130-400 Automated blood platelet mean volume measurement 10.5 [foz_us] 7.4-10.4 Automated blood neutrophils/100 leukocytes 83 % 42-75 Automated blood lymphocytes/100 leukocytes 8 % 12-44 Blood monocytes/100 leukocytes 9 % 0-12 Automated blood eosinophils/100 leukocytes 0 % 0-10 Automated blood basophils/100 leukocytes 0 % 0-10 Blood neutrophils automated count (number/volume) 14.8 10*3 1.8-7.8 Blood lymphocytes automated count (number/volume) 1.3 10*3 1.0-4.0 Blood monocytes automated count (number/volume) 1.6 10*3 0.0-1.0 Automated eosinophil count 0.0 10*3/uL 0.0-0.3 Automated blood basophil count (count/volume) 0.0 10*3/uL 0.0-0.1 Blood manual differential performed detection - 12/15/17 06:42 Blood monocytes/100 leukocytes 7 % NRG Manual blood segmented neutrophils/100 leukocytes 78 % NRG Blood band neutrophils/100 leukocytes 2 % NRG Manual blood lymphocytes/100 leukocytes 13 % NRG Manual eosinophils/100 leukocytes in nose 0 % NRG Manual blood basophils/100 leukocytes 0 % NRG Blood anisocytosis detection by light microscopy [facility] Comprehensive metabolic panel - 12/15/17 06:42 Serum or plasma sodium measurement (moles/volume) 138 mmol/L 135-145 Serum or plasma potassium measurement (moles/volume) 4.1 mmol/L 3.6-5.0 Serum or plasma chloride measurement (moles/volume) 102 mmol/L 98-107 Carbon dioxide 27 mmol/L 21-32 Serum or plasma anion gap determination (moles/volume) 9 mmol/L 5-14 Serum or plasma urea nitrogen measurement (mass/volume) 13 mg/dL 7-18 Serum or plasma creatinine measurement (mass/volume) 1.49 mg/dL 0.60-1.30 Serum or plasma urea nitrogen/creatinine mass ratio 9 NRG Serum or plasma creatinine measurement with calculation of estimated glomerular filtration rate 46 NRG Serum or plasma glucose measurement (mass/volume) 160 mg/dL 70-105 Serum or plasma calcium measurement (mass/volume) 9.3 mg/dL 8.5-10.1 Serum or plasma total bilirubin measurement (mass/volume) 0.6 mg/dL 0.1-1.0 Serum or plasma alkaline phosphatase measurement (enzymatic activity/volume) 31 U/L 40-136 Serum or plasma aspartate aminotransferase measurement (enzymatic activity/ volume) 29 U/L 5-34 Serum or plasma alanine aminotransferase measurement (enzymatic activity/volume ) 27 U/L 0-55 Serum or plasma protein measurement (mass/volume) 6.7 g/dL 6.4-8.2 Serum or plasma albumin measurement (mass/volume) 3.3 g/dL 3.2-4.5 CALCIUM CORRECTED 9.9 mg/dL 8.5-10.1 Encounters ACCT No. Visit Date/Time Discharge Status Pt. Type Provider Facility Loc./Unit Complaint [id number] 12/14/2017 18:00:00 12/15/2017 11:46:00 DIS Inpatient KIERAN VALDIVIA, STACIE Aldana [facility] 4TH CHOLECYSTITIS [id number] 04/15/2015 07:09:00 04/15/2015 23:59:59 CLS Outpatient CHUN TINSLEY [facility] CARD CAD,CHRONIC A-FIB [id number] 02/06/2015 11:11:00 02/06/2015 15:05:00 DIS Emergency SONIA VALDIVIA, SUSANNE Diaz [facility] ER IRR HEART RATE [id number] 12/13/2017 18:56:00 12/13/2017 21:47:00 DIS Outpatient [facility] [place] ER [id number] 12/14/2017 16:19:54 Document Registration [id number] 12/14/2017 15:31:00 Outpatient [facility] ER
== END 2017-12-15 11:46 | disposition home or self-care (01) ==
LOC: UNDOADMIN 18:00 → 4TH 18:00 → SDC 18:00 → UNDODISIN 12-15 11:46 → SDC 12-15 11:46
PROVIDERS: ATTEND Family Medicine
DX: K80.00 Calculus of gallbladder with acute cholecystitis without obstruction (principal); K42.0 Umbilical hernia with obstruction, without gangrene; I48.2 Chronic atrial fibrillation; I25.10 Atherosclerotic heart disease of native coronary artery without angina pectoris; E66.01 Morbid (severe) obesity due to excess calories; Z68.42 Body mass index [BMI] 45.0-49.9, adult; I10 Essential (primary) hypertension; E78.00 Pure hypercholesterolemia, unspecified; E11.9 Type 2 diabetes mellitus without complications; M19.91 Primary osteoarthritis, unspecified site; R60.0 Localized edema; G47.33 Obstructive sleep apnea (adult) (pediatric); I08.1 Rheumatic disorders of both mitral and tricuspid valves; Z95.5 Presence of coronary angioplasty implant and graft; Z87.891 Personal history of nicotine dependence; Z79.84 Long term (current) use of oral hypoglycemic drugs; Z79.01 Long term (current) use of anticoagulants
CPT/HCPCS: 36415; 80053; 82962; 85007; 85027; 87081; 88304; 93005; 94664; 94760